=== PATIENT | female | born 2005 | race Caucasian/White ===

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

== ENCOUNTER 2024-12-19 18:23 | Emergency (ER) | payer MEDICAID, SELFPAY ==
--- NOTE | ~2024-12-19 | XR_ITS ---
CLINICAL HISTORY: low back pain 3 views lumbar spine Comparison: None Findings: No fractures or dislocations. Normal vertebral body alignment. No significant arthritic change. Sacroiliac joints unremarkable. Impression: 1. Normal lumbar spine This document has been electronically signed by: Kory Rangel MD on 12/19/2024 20:19:09
[2024-12-19 18:37] VITALS: BP 114/67; PULSE 89; RESP 18; TEMP 36.1; O2SAT 98; BMI 44.6
--- NOTE | 2024-12-19 18:37 | ED.BACK ---
HPI - Back Pain/Injury General Chief Complaint: Extremity Injury, Lower Stated Complaint: lower back pain shoots down the thigh Time Seen by Provider: 12/19/24 18:43 Source: patient, RN notes reviewed and old records reviewed Mode of arrival: ambulatory History of Present Illness ED Provider: Danielle Roberson PA-C HPI Narrative: 19-year-old female no significant past medical history presenting to the ED complaining of low back pain x1 month with radiation to left buttock/left knee. Reports intermittent tingling. Has been taking Tylenol at home with some relief. Denies known injury, however does reports some heavy lifting at work. Denies weakness, abdominal pain, hematuria/dysuria, incontinence/retention Related Data Previous Rx's ?Medication ?Instructions ?Recorded acetaminophen 325 mg capsule 325 mg PO QID PRN fever #14 caps 11/01/20 (Tylenol) bacitracin 500 unit/gram topical 1 appl topical BID 7 days #28 grams 11/01/20 ointment ibuprofen 400 mg tablet 400 mg PO Q6H 7 days #28 tabs 11/01/20 acetaminophen 500 mg tablet 500 mg PO Q6H PRN fever or pain 12/19/24 (Tylenol Extra Strength) #14 tabs cyclobenzaprine 5 mg tablet 5 mg PO Q8H PRN pain (scale score 12/19/24 7-10) 5 days #14 tabs lidocaine 5 % topical patch 1 patch topical DAILY PRN pain #30 12/19/24 (Lidoderm) ea naproxen 500 mg tablet 500 mg PO BID PRN pain 10 days #20 12/19/24 tabs Allergies Allergy/AdvReac Type Severity Reaction Status Date / Time No Known Allergies Allergy Verified 12/19/24 18:39 Review of Systems Review of Systems: Yes all other systems are reviewed and are negative Constitutional: Constitutional: Reports as per HPI Neurologic: Denies Sensory deficit (Neuro) [facility] Past Medical History Attestation statement: The following information was validated with the patient. Source: old records reviewed Medical History Prediabetes Social History Social History Alcohol intake: never Advance Directives: No Advance Directives Information Provided: Yes Do you have a plan to hurt others: No Plan Physical Exam Vital Signs: Vital Signs: Last Vital Signs Temp 97.5 F 12/19/24 20:33 Pulse 82 12/19/24 20:33 Resp 20 12/19/24 20:33 BP 113/63 12/19/24 20:33 Pulse Ox 99 12/19/24 20:33 O2 Del Method Room Air 12/19/24 20:33 BMI result Body Mass Index 44.6 Const: General: cooperative, healthy appearing and no acute distress Orientation/consciousness: patient oriented x3 Limitations: no limitations HEENT: Head: Yes normal to inspection and Yes atraumatic Ears: hearing grossly normal bilaterally General nose exam: Normal external nose present Face and sinus: Yes normal facial exam Eyes: General: appearance normal, both eyes and all related structures EOM: EOMs intact bilaterally Neck: Neck: Yes normal visual inspection and Yes no meningeal signs Resp: Effort & Inspection: normal respiratory effort and no respiratory distress Cardio: Rate: regular rate GI: Inspection: Yes normal to inspection Palpation (GI): Soft to palpation, nontender, no guarding and not rigid : General: Yes no CVA tenderness Back/Spine/Pelvis: Other: No midline cervical/thoracic/lumbar spinous tenderness/step-off or deformity. + left-sided lumbar paraspinal / MSK reproducible tenderness to palpation Back: no CVA tenderness Skin: Rashes: no rashes Wounds: no wounds Neuro: Other: Strength intact throughout. No saddle anesthesia. Sensation intact to light touch. Neurovascular intact distally General: patient oriented x3, gait normal, tone normal, moves all extremities, no meningeal signs and no focal motor deficits Cranial nerves: Yes CN's II-XII intact bilaterally Gait exam (Neuro): Normal gait present Motor exam (neuro): 5/5 motor strength present throughout Sensory Exam: No Sensory deficit (Neuro) Extrem: General: Yes normal to inspection Course Course Course Narrative: XR lumbar spine 2-3V Impression: 1. Normal lumbar spine Results discussed with patient including worrisome signs and symptoms and strict return precautions, and when to return to the emergency department. They verbalized understanding and feel safe for discharge at this time. Medical Decision Making Medical Decision Making [facility] Narrative: 19-year-old female no significant past medical history presenting to the ED complaining of low back pain x1 month with radiation to left buttock/left knee. On exam vital signs stable, NAD, nontoxic appearing, physical exam as noted above. No midline spinous tenderness. No red flag symptoms. Ambulating with steady gait. Concern for MSK pain/strain vs sciatica vs ?Herniated disc. Low suspicion for cauda equina, cord compression, epidural abscess, renal stone Plan: X-ray, pain control Please refer to course for remaining clinical decision making, interpretation of labs/imaging results, and discussions with consultants and/or family members. Differential Diagnosis Differential Diagnoses: The differential diagnosis associated with the presentation includes As above Independent Interpretation I performed an independent interpretation of an: Plain X-Ray Radiology Impression Discussion of test interpretation with radiology: I have reviewed the radiologist's reading. External Record Review External record reviewed: Inpatient record, Office record, Outpatient record, Prior outpatient labs, Prior outpatient radiology, Primary care record and Outside ED record Tests considered The following testing was considered but not selected: As above Prescription Management I considered prescription management with: Pain Medication Discharge Plan Discharge Clinical Impression: Sciatica Patient Disposition: Home, Self-Care Instructions: Sciatica (ED) Additional Instructions: your xray was unremarkable Your pain is likely musculoskeletal Flexeril is a muscle relaxer, take at night as it makes you drowsy, do not drive, drink alcohol, or operate machinery while taking it Naproxen as an anti-inflammatory / pain medication, take with food Lidoderm patches are numbing patches, apply to painful area In addition take Tylenol at home If symptoms persist or worsen, pain becomes unbearable, you developed urinary retention or incontinence, or weakness return to the ED Prescriptions: New acetaminophen [Tylenol Extra Strength] 500 mg tablet 500 mg PO Q6H PRN (Reason: fever or pain) Qty: 14 0RF lidocaine [Lidoderm] 5 % adhesive patch,medicated 1 patch topical DAILY MDD remove after 12 hours PRN (Reason: pain) Qty: 30 0RF Rx Instructions: leave on most painful area for up to 12 hrs naproxen 500 mg tablet 500 mg PO BID PRN (Reason: pain) 10 Days Qty: 20 0RF cyclobenzaprine 5 mg tablet 5 mg PO Q8H PRN (Reason: pain (scale score 7-10)) 5 Days Qty: 14 0RF No Action ibuprofen 400 mg tablet 400 mg PO Q6H 7 Days Qty: 28 0RF acetaminophen [Tylenol] 325 mg capsule 325 mg PO QID PRN (Reason: fever) Qty: 14 0RF bacitracin 500 unit/gram ointment 1 appl topical BID 7 Days Qty: 28 0RF Referrals: Physician,None [Primary Care Provider, Medical] - 1 week Stand Alone Forms: Work/School Release Interventions: ED Discharge Assessment Last Done: 12/19/24 20:33 Discharge Date/Time: 12/19/24 20:34 Print Language: Indonesian
--- OUTSIDE RECORDS SUMMARY | 2024-12-19 19:28 | XMS_ITS | Clinical Summary ---
Author Organization [facility] Address [address] [place] [id number] Phone Care Team Providers Care Slab Lifting Supervisor Name Role Phone Do Oh MD Primary Care Provider + Social History Tobacco Use Types Packs/Day Years Used Date Smoking Tobacco: Never Assessed Comments Unknown Sex and Gender Information Value Date Recorded Sex Assigned at Not on file Legal Sex Female 12:05 PM EDT Gender Identity Not on file Sexual Orientation Not on file Plan of Treatment Not on file Medical Devices Not on file Insurance [facility] [address] [place] [address] [facility] Care Teams Slab Lifting Supervisor Relationship Specialty Start Date End Date Do Oh MD [address] [place] [id number] PCP - General Pediatrics 09/06/23 Additional Source Comments The information contained in this document represents components of the legal health record. It is not the complete legal health record.[facility]
--- OUTSIDE RECORDS SUMMARY | 2024-12-19 19:28 | XMS_ITS | Clinical Summary ---
Author Organization [facility] Address [address] [place] [address] Care Team Providers Care Veterinary Livestock Inspector Name Role Phone Do Oh Primary Care Provider [phone] Allergies No known active allergies Medications tretinoin (RETIN-A) 0.025 % creamIndication s:Acne vulgaris Apply small amount to entire face, start with every third night and gradually increase to nightly use. May cause irritation. 45 g 5 3 Active spironolactone (ALDACTONE) 50 mg tabletIndicatio ns:Acne vulgaris Take one tablet (50mg) daily for 1 week. If tolerating without dizziness or headache, increase to one tablet twice daily after 1 week. 60 tablet 3 3 Active selenium sulfide 2.25 % shampooIndicati ons:Acne vulgaris,Seborr heic dermatitis Apply to face daily in the morning and rinse. Ok to also use to wash scalp. 180 mL 5 3 Active Active Problems Problem Noted Date Diagnosed Date Functional heart murmur 08/16/2022 Social History Tobacco Use Types Packs/Day Years Used Date Smoking Tobacco: Unknown Tobacco Cessation:Counseling Given: Not Answered Comments Unknown Sex and Gender Information Value Date Recorded Sex Assigned at Not on file Legal Sex Female 1:51 PM EDT Gender Identity Not on file Sexual Orientation Not on file Last Filed Vital Signs Vital Sign Reading Time Taken Comments Blood Pressure - - Pulse - - Temperature - - Respiratory Rate - - Oxygen Saturation - - Inhaled Oxygen Concentration - - Weight 104.3 kg (230 lb) 08/16/2022 9:57 AM EDT Height 160 cm (5' 3 ) 08/16/2022 9:57 AM EDT Body Mass Index 40.74 08/16/2022 9:57 AM EDT Plan of Treatment Health Maintenance Due Date Last Done Comments HIV Screening 2003 Hepatitis C Screening 2003 Pap Smear 2003 1 Week [facility] 2003 1 Month [facility] 2003 2 Month [facility] 01/29/2004 4 Month [facility] 04/06/2004 6 Month [facility] 06/05/2004 9 Month [facility] 09/03/2004 12 Month [facility] 2004 15 Month [facility] 03/02/2005 18 Month WC 05/31/2005 24 Month [facility] 11/27/2005 30 Month [facility] 04/02/2006 3 to 21 Year [facility] 12/13/2006 Well Child Check 12/13/2006 Chlamydia Screening 2019 Alcohol/Substance Use Screening 02/26/2024 Depression Screening and Follow-Up 02/26/2024 Social Drivers of Health Denia ual Screening 02/26/2024 COVID-19 Vaccine ( - 2024-2 6 season) 2024 Influenza Vaccine (#1) 2024 7, 11/23/2015, 11/16/2014, Additional history exists DTaP,Tdap,and Td Vaccines (7 - Td or Tdap) 11/20/2024 11/20/2014, 03/22/2008, 07/31/2005, Additional history exists RSV Vaccine (60+ years old a nd patients) (1 - 1-dose 75+ series) 12/13/2078 Hepatitis B Vaccines Completed 07/04/2004, 04/21/2004, 2003 Pneumococcal Vaccine: Pediat lj (0-5 Years) and At-Risk Patients (6-50 Years) Completed 12/13/2004, 07/04/2004, 04/21/2004, Additional history exists MMR Vaccines Completed 03/22/2008, 12/13/2004 Varicella Vaccines Completed 03/22/2008, 12/13/2004 HPV Vaccines Completed 01/02/2017, 11/23/2015 Meningococcal Vaccine Completed 05/11/2020, 015 Insurance [employer] [place] PPO Care Teams Veterinary Livestock Inspector Relationship Specialty Start Date End Date Do Oh [address] [place] [id number] PCP - General Pediatrics 04/10/22
[2024-12-19 20:25] VITALS: BP 113/63; PULSE 82; RESP 20; TEMP 36.4; O2SAT 99
[2024-12-19 20:33] VITALS: BP 113/63; PULSE 82; RESP 20; TEMP 36.4; O2SAT 99
== END 2024-12-19 20:34 | disposition home or self-care (01) ==
PROVIDERS: Emergency Provider Emergency Medicine Emergency Medical Services
DX: M54.30 Sciatica, unspecified side (principal); M54.50 Low back pain, unspecified
CPT/HCPCS: 72100; 99283

== ENCOUNTER → 2024-12-19 18:41 | Outpatient (BNV) | payer MEDICAID, SELFPAY | PROVIDERS: Emergency Provider Emergency Medicine Emergency Medical Services; Visit Provider Radiology Diagnostic Radiology | DX: M54.50 Low back pain, unspecified (principal) | CPT/HCPCS: 72100 ==